=== PATIENT | male | born 1975 | race Caucasian/White ===

== ENCOUNTER 2018-11-16 08:03 | Emergency (ER) | payer BC, OTHER ==
[2018-11-16 08:26] VITALS: BP 133/75
--- NOTE | 2018-11-16 08:43 | UC ---
Respiratory Complaint HPI - HPI Summary HPI Summary: cough x 7 days cough is dry , harsh , worse at night, and getting worse over the past 2 days nasal congest, pnd, sore throat, no fever, + chills no sob , no chest pain - History of Current Complaint Chief Complaint: UCRespiratory Stated Complaint: COUGH Time Seen by Provider: 11/16/18 08:33 Hx Obtained From: Patient Onset/Duration: Gradual Onset, Lasting Days - 7, Still Present, Worse Since - 2 days ago Timing: Constant Severity Initially: Moderate Severity Currently: Moderate Pain Intensity: 0 Character: Cough: Nonproductive Aggravating Factors: Exertion, Deep Breaths Alleviating Factors: Nothing Associated Signs And Symptoms: Positive: URI, Nasal Congestion. Negative: Fever , Chills, Pleuritic Chest Pain, Wheezing, Hemoptysis, Dizziness, Calf Pain, Calf Swelling - Allergies/Home Medications Allergies/Adverse Reactions: Allergies Allergy/AdvReac Type Severity Reaction Status Date / Time No Known Allergies Allergy Verified 11/16/18 08:23 Home Medications: Home Medications Citalopram TAB* [Celexa TAB*] 1 tab DAILY 11/16/18 [History Confirmed 11/16/18] PMH/Surg Hx/FS Hx/Imm Hx Previously Healthy: Yes - Surgical History Surgical History: Yes Surgery Procedure, Year, and Place: tonsils - Family History Known Family History: Negative: Diabetes - Social History Alcohol Use: Occasionally Substance Use Type: None Smoking Status (MU): Never Smoked Tobacco Review of Systems All Other Systems Reviewed And Are Negative: Yes Constitutional: Positive: Negative Skin: Positive: Negative Eyes: Positive: Negative ENT: Positive: Nasal Discharge Respiratory: Positive: Cough Cardiovascular: Positive: Negative Is Patient Immunocompromised?: No Physical Exam Triage Information Reviewed: Yes Appearance: Well-Appearing, No Pain Distress, Well-Nourished Vital Signs: Initial Vital Signs Temp 98 F 11/16/18 08:24 Pulse 67 11/16/18 08:24 Resp 15 11/16/18 08:24 BP 133/75 11/16/18 08:24 Pulse Ox 100 11/16/18 08:24 Vital Signs Reviewed: Yes Eye Exam: Normal Eyes: Positive: Conjunctiva Clear ENT: Positive: Normal ENT inspection, Hearing grossly normal, Pharynx normal Neck: Positive: Supple, Nontender, No Lymphadenopathy Respiratory: Positive: Chest non-tender, Lungs clear, Normal breath sounds Cardiovascular: Positive: RRR, No Murmur, Pulses Normal Skin Exam: Normal Respiratory Course/Dx - Differential Dx/Diagnosis Provider Diagnosis: Bronchitis Discharge - Sign-Out/Discharge Documenting (check all that apply): Patient Departure All imaging exams completed and their final reports reviewed: No Studies - Discharge Plan Condition: Stable Disposition: HOME Prescriptions: Azithromycin TAB* [Zithromax TAB (Z-CLARISSA) 250 mg #6 tabs] 2 tab PO .TODAY, THEN 1 DAILY #1 clarissa Patient Education Materials: Acute Bronchitis (ED) Referrals: Tiburcio Damico MD [Primary Care Provider] - If Needed - Billing Disposition and Condition Condition: STABLE Disposition: Home
== END 2018-11-16 08:45 | disposition home or self-care (01) ==
LOC: UCCORT 08:03
DX: J40 Bronchitis, not specified as acute or chronic (principal)
CPT/HCPCS: 99202; G0463

== ENCOUNTER 2019-05-16 17:05 | Emergency (ER) | payer OTHER ==
[2019-05-16 17:42] VITALS: BP 130/77
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
== END 2019-05-16 19:09 | disposition home or self-care (01) ==
LOC: UCCORT 17:05
DX: S62.341A Nondisplaced fracture of base of second metacarpal bone, left hand, initial encounter for closed fracture (principal); S90.32XA Contusion of left foot, initial encounter; S13.4XXA Sprain of ligaments of cervical spine, initial encounter; S00.531A Contusion of lip, initial encounter; W22.11XA Striking against or struck by driver side automobile airbag, initial encounter; V49.40XA Driver injured in collision with unspecified motor vehicles in traffic accident, initial encounter; Y92.410 Unspecified street and highway as the place of occurrence of the external cause
CPT/HCPCS: 26600; 99211; G0463